=== PATIENT | female | born 1960 | race African-American/Black ===

== ENCOUNTER 2018-08-02 10:12 | Emergency (ER) | payer BC, MEDICAID ==
--- NOTE | 2018-08-02 10:28 | EDM.PDOC ---
ED HPI GENERAL MEDICAL PROBLEM - General Stated Complaint: FELL/FACIAL INJURY Time Seen by Provider: 08/02/18 10:27 - Related Data Allergies Allergy/AdvReac Type Severity Reaction Status Date / Time No Known Allergies Allergy Verified 08/02/18 10:27 Home Meds: Home Meds Ibuprofen [Motrin] 600 mg PO Q6H PRN #30 tablet 10/23/14 [Rx] Past Medical History - Past Health History Medical/Surgical History: Denies Medical/Surgical History Respiratory History: Reports: COPD Other [employer] History: Cervical cancer with chemo and radiation treatment Neurological History: Reports: CVA Psychiatric History: Reports: None Hematologic History: Reports: None Oncologic (Cancer) History: Reports: Cervix Other Oncologic History: Port left subclavian area - Infectious Disease History Infectious Disease History: Reports: None Social & Family History - Family History Family Medical History: Noncontributory - Caffeine Use Caffeine Use: Reports: Coffee Departure - Discharge Information Referrals: Scotty Mcmahon MD [Primary Care Provider] -
--- NOTE | 2018-08-02 11:17 | EDM.PDOC ---
ED HPI GENERAL MEDICAL PROBLEM - General Chief Complaint: Trauma Stated Complaint: FELL/FACIAL INJURY Time Seen by Provider: 08/02/18 10:27 Source of Information: Reports: Patient, RN Notes Reviewed History Limitations: Reports: No Limitations - History of Present Illness INITIAL COMMENTS - FREE TEXT/NARRATIVE: Patient is a 58-year-old female who presents to the ED today for the evaluation of a fall yesterday. She states that she woke up around 7 in the morning yesterday and shortly after waking she felt dizzy and fell to the ground from a standing position. She notes that she has had a previous left-sided stroke in December 2015 which has left her with a left-sided deficit; as included left- sided weakness but she still has sensation to her left side. She notes that she normally walks with a quad cane. She states that she hit the left side of her face on the door frame and then fell onto her left side and directly onto her left arm. She denies any visual disturbance to her left eyes that would include blurry vision or double vision. She states that she does have some pain in her left forearm after this fall. She notes that she has a little bit more swelling on her left forearm than she normally does as well. She states that she took a little bit of Tylenol yesterday for this pain and it did seem to help. She did note some mild swelling to under her left eye as well, with a small bruise noted. She states that she has been feeling well otherwise, no fevers/chills, nausea/vomiting/diarrhea, chest pain, shortness of breath, or headache. She states that she does not have diabetes nor does she have any previous blood sugar or low blood pressure issues. Left Face/Facial Pain Score (Numeric/FACES): 6 Left Arm Pain Score (Numeric/FACES): 4 - Related Data Allergies Allergy/AdvReac Type Severity Reaction Status Date / Time No Known Allergies Allergy Verified 08/02/18 10:27 Home Meds: Home Meds Ibuprofen [Motrin] 600 mg PO Q6H PRN #30 tablet 10/23/14 [Rx] Abacavir/Dolutegravir/Lamivudi [Triumeq 600-50-300 mg Tablet] 1 tab PO DAILY 01/13 [History] Budesonide/Formoterol [Symbicort 160-4.5 MCG] 2 puff INH BID 08/02/18 [History] Clindamycin Phosphate 1 applic TOP ASDIRECTED 08/02/18 [History] Furosemide [Lasix] 40 mg PO BID 08/02/18 [History] Mirabegron [Myrbetriq] 50 mg PO DAILY 08/02/18 [History] Montelukast [Singulair] 10 mg PO BEDTIME 08/02/18 [History] Ondansetron [Zofran ODT] 1 tab PO Q4H PRN 08/02/18 [History] Sulfamethoxazole/Trimethoprim [Bactrim Ds Tablet] 1 tab PO TID 08/02/18 [History ] Umeclidinium [place] [Incruse Ellipta*] 1 puff INH DAILY 08/02/18 [History] guaiFENesin/Codeine Phosphate [Cheratussin AC Syrup] 5 ml PO Q4H PRN 08/02/18 [ History] Past Medical History - Past Health History Medical/Surgical History: Denies Medical/Surgical History Respiratory History: Reports: COPD Genitourinary History: Reports: Urinary Incontinence 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 Social & Family History - Family History Family Medical History: Noncontributory - Tobacco Use Smoking Status *Q: Never Smoker Second Hand Smoke Exposure: No - Caffeine Use Caffeine Use: Reports: None - Recreational Drug Use Recreational Drug Use: No Review of Systems - Review of Systems Review Of Systems: See Below Constitutional: Reports: Weakness (Previous left sided due to stroke in December 2015). Denies: Chills, Fever Eyes: Denies: Blurred Vision, Pain, Vision Change Ears: Reports: No Symptoms Nose: Denies: Bloody Discharge, Serosanguinous Discharge Mouth/Throat: Reports: No Symptoms Respiratory: Reports: No Symptoms Cardiovascular: Reports: No Symptoms GI/Abdominal: Reports: No Symptoms Genitourinary: Reports: No Symptoms Musculoskeletal: Reports: Arm Pain (Left forearm) Skin: Reports: Bruising (under Left eye orbit) Neurological: Reports: Pre-Existing Deficit (Left sided due to stroke in December 2015) Psychiatric: Reports: No Symptoms ED EXAM, GENERAL - Physical Exam Exam: See Below Exam Limited By: No Limitations General Appearance: Alert, WD/WN, No Apparent Distress Eye Exam: Bilateral Eye: EOMI, Normal Inspection, PERRL Ears: Normal External Exam, Normal Canal, Normal TMs Nose: Normal Inspection, No Blood Throat/Mouth: Normal Inspection, Normal Oropharynx, No Airway Compromise Head: Atraumatic, Normocephalic, Facial Swelling (left sided, under left eye orbit with small ecchymosis noted. No increased pain with palpation of zygomatic process and TMJ or jaw bone. No increased pain/tenderness with percussion of facial sinuses.) Neck: Normal Inspection, Supple, Non-Tender, Full Range of Motion Respiratory/Chest: No Respiratory Distress, Lungs Clear, Normal Breath Sounds, No Accessory Muscle Use, Chest Non-Tender Cardiovascular: Normal Peripheral Pulses, Regular Rate, Rhythm, No Murmur GI/Abdominal: Normal Bowel Sounds, Soft, Non-Tender, No Distention, No Mass Extremities: Normal Inspection, Normal Range of Motion, Normal Capillary Refill , Other (slight tenderness noted to palpation left forearm) Neurological: Alert, Oriented, Normal Cognition, Sensory/Motor Deficit ( Previous left-sided deficits due to stroke in December 2015, the patient has left- sided weakness from this but does retain sensation. She states that she has normal range of motion for the deficit.) Psychiatric: Normal Affect, Normal Mood Skin Exam: Warm, Dry, Intact, Normal Color, No Rash, Ecchymosis (Small ecchymosis noted to inferior left eye orbit) Course - Vital Signs Last Recorded V/S: Last Vital Signs Temp 99.5 F 08/02/18 10:25 Pulse 65 08/02/18 10:25 Resp 18 08/02/18 10:25 BP 112/69 08/02/18 10:25 Pulse Ox 100 08/02/18 10:25 - Orders/Labs/Meds Orders: Active Orders 24 hr Category Date Time Status Forearm 2V Lt [CR] Stat Exams 08/02/18 11:10 Taken Labs: Laboratory Tests 08/02/18 08/02/18 Range/Units 11:44 11:44 WBC 3.52 L (3.98-10.04) K/mm3 RBC 3.07 L (3.98-5.22) M/mm3 Hgb 10.9 L (11.2-15.7) gm/L Hct 33.8 L (34.1-44.9) % MCV 110.1 H (79.4-94.8) fl MCH 35.5 H (25.6-32.2) pg MCHC 32.2 (32.2-35.5) g/dl RDW Std Deviation 51.6 H (36.4-46.3) fL Plt Count 238 (182-369) K/mm3 MPV 8.1 L (9.4-12.3) fl Neutrophils % (Manual) 45 (40-60) % Band Neutrophils % 0 (0-10) % Lymphocytes % (Manual) 35 (20-40) % Atypical Lymphs % 0 % Monocytes % (Manual) 6 (2-10) % Eosinophils % (Manual) 13 H (0.7-5.8) % Basophils % (Manual) 1 (0.1-1.2) Platelet Estimate Adequate Macrocytosis 2+ moderate RBC Morph Comment Not Reportable Sodium 139 (136-145) mEq/L Potassium 4.3 (3.5-5.1) mEq/L Chloride 104 (98-107) mEq/L Carbon Dioxide 25 (21-32) mEq/L Anion Gap 14.3 (5-15) BUN 12 (7-18) mg/dL Creatinine 1.2 H (0.55-1.02) mg/dL Est Cr Clr Drug Dosing 52.81 mL/min Estimated GFR (MDRD) 56 (>60) mL/min BUN/Creatinine Ratio 10.0 L (14-18) Glucose 85 (74-106) mg/dL Calcium 9.1 (8.5-10.1) mg/dL Total Bilirubin 0.2 (0.2-1.0) mg/dL AST 24 (15-37) U/L ALT 25 (14-59) U/L Alkaline Phosphatase 72 (46-116) U/L Total Protein 7.6 (6.4-8.2) g/dl Albumin 3.6 (3.4-5.0) g/dl Globulin 4.0 gm/dL Albumin/Globulin Ratio 0.9 L (1-2) - Re-Assessments/Exams Free Text/Narrative Re-Assessment/Exam: 08/02/18 11:23 Patient presents to the ED for the evaluation of injury sustained from a fall. I am suspicious since this happened yesterday morning that it was due to may be an orthostasis event. However her blood pressure is good at this time of evaluation. I have ordered a left forearm x-ray for further evaluation, and CBC and CMP to further rule out any other abnormalities. Facial CT will not be obtained at this time as there is no obvious sign of any facial bone fracture. 08/02/18 11:54 Left forearm x-ray does not appreciate any acute fracture or other bony abnormalities at this time. Official radiology read is pending. This x-ray was reviewed with Dr. Flowers. 08/02/18 12:32 Patient's labs have returned and are within normal limits. There are no focal abnormalities that would suggest any other underlying etiology that may have precipitated these falls. We will discharge home with general instructions. Departure - Departure Time of Disposition: 12:33 Disposition: Home, Self-Care 01 Condition: Fair Clinical Impression: Left arm pain Fall Qualifiers: Encounter type: initial encounter Qualified Code(s): W19.XXXA - Unspecified fall, initial encounter - Discharge Information *PRESCRIPTION DRUG MONITORING PROGRAM REVIEWED*: No *COPY OF PRESCRIPTION DRUG MONITORING REPORT IN PATIENT JAMA: No Instructions: Musculoskeletal Pain Referrals: Scotty Mcmahon MD [Primary Care Provider] - Additional Instructions: You have been evaluated in the ED for injuries sustained from a fall yesterday. Your x-ray demonstrated no acute fracture or bony abnormality. Your labs were within normal limits, and do not demonstrate any further reason for your fall. Your fall was likely due to slight dehydration with possible drop in blood pressure upon waking. Please use ice/heat as tolerated to the affected areas. You may take tylenol 500 mg or ibuprofen 600mg q6 hrs for pain relief. Please do so until you have a tolerable level of pain with activity. Do not exceed 4000mg tylenol, Do not exceed 3200mg ibuprofen in a 24 hour time period Please return to ED if your symptoms should change or worsen. - My Orders Last 24 Hours: My Active Orders 08/02/18 11:10 Forearm 2V Lt [CR] Stat - Assessment/Plan Last 24 Hours: My Active Orders 08/02/18 11:10 Forearm 2V Lt [CR] Stat
[2018-08-02 12:51] VITALS: BP 133/73
--- NOTE | 2018-08-05 09:06 | CR ---
Left forearm: Two views of the left forearm were obtained. No fracture or other abnormality is appreciated. Impression: 1. No abnormality is appreciated on two-view left forearm study. Diagnostic code #1
== END 2018-08-02 12:42 | disposition home or self-care (01) ==
LOC: JD.ED 10:12
DX: M79.602 Pain in left arm (principal); J44.9 Chronic obstructive pulmonary disease, unspecified; E03.9 Hypothyroidism, unspecified; Z79.899 Other long term (current) drug therapy; W18.30XA Fall on same level, unspecified, initial encounter
CPT/HCPCS: 36415; 73090-26-LT; 73090-LT; 80053; 85007; 85027; 99283; 99284-25

== ENCOUNTER 2018-10-04 13:11 | Emergency (ER) | payer BC, MEDICAID ==
[2018-10-04 13:23] VITALS: BP 146/89
[2018-10-04] MEDS ORDERED: Ketorolac 30 MG/ML SDV IM ONE (13:57)
--- NOTE | 2018-10-04 14:07 | EDM.PDOC ---
ED HPI GENERAL MEDICAL PROBLEM - General Chief Complaint: Lower Extremity Injury/Pain Stated Complaint: [facility] Time Seen by Provider: 10/04/18 13:45 Source of Information: Reports: Patient, RN Notes Reviewed History Limitations: Reports: No Limitations - History of Present Illness INITIAL COMMENTS - FREE TEXT/NARRATIVE: Patient is a 58-year-old female who presents to the ED for the evaluation of left groin and left leg pain. She notes that the left groin pain has been present for the past couple days, but now this pain has been radiating to her left anterior thigh. She denies any swelling or redness to the area. She notes this pain to be crampy in nature. She denies any fevers or chills. She has been taken 1000 mg of Tylenol 3 or 4 times a day but this has not been providing her much relief. She denies any problems of low back pain. She notes that both of her lower extremities are swollen, however this is not worse for her. She states sometimes also when she is sitting upright that the bottom of her left foot goes numb and hurts when she sits directly on her bottom. She would rate her pain at an 8 out of 10 today. Left Thigh Pain Score (Numeric/FACES): 8 - Related Data Allergies Allergy/AdvReac Type Severity Reaction Status Date / Time No Known Allergies Allergy Verified 10/04/18 13:23 Home Meds: Home Meds Abacavir/Dolutegravir/Lamivudi [Triumeq 600-50-300 mg Tablet] 1 tab PO DAILY 01/13 [History] Budesonide/Formoterol [Symbicort 160-4.5 MCG] 2 puff INH BID 08/02/18 [History] Clindamycin Phosphate 1 applic TOP ASDIRECTED 08/02/18 [History] Furosemide [Lasix] 40 mg PO BID 08/02/18 [History] Mirabegron [Myrbetriq] 50 mg PO DAILY 08/02/18 [History] Montelukast [Singulair] 10 mg PO BEDTIME 08/02/18 [History] Ondansetron [Zofran ODT] 1 tab PO Q4H PRN 08/02/18 [History] Sulfamethoxazole/Trimethoprim [Bactrim Ds Tablet] 1 tab PO TID 08/02/18 [History ] Umeclidinium [place] [Incruse Ellipta*] 1 puff INH DAILY 08/02/18 [History] guaiFENesin/Codeine Phosphate [Cheratussin AC Syrup] 5 ml PO Q4H PRN 08/02/18 [ History] Albuterol [Ventolin HFA] 2 puff INH Q4HR PRN 10/04/18 [History] Baclofen 10 oz PO QID 10/04/18 [History] Levothyroxine [Synthroid] 100 mg PO DAILY 10/04/18 [History] Multivitamin [Multivitamins] 1 tab PO DAILY 10/04/18 [History] Maybeury-3/DHA/Epa/Fish Oil [Maybeury 3 500 Softgel] 1 tab PO DAILY 10/04/18 [History] Past Medical History - Past Health History Medical/Surgical History: Denies Medical/Surgical History Respiratory History: Reports: COPD Genitourinary History: Reports: Urinary Incontinence 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 Social & Family History - Family History Family Medical History: Noncontributory - Tobacco Use Smoking Status *Q: Never Smoker Second Hand Smoke Exposure: No - Caffeine Use Caffeine Use: Reports: Tea - Recreational Drug Use Recreational Drug Use: No Review of Systems - Review of Systems Review Of Systems: See Below Constitutional: Denies: Chills, Fever Eyes: Reports: No Symptoms Ears: Reports: No Symptoms Nose: Reports: No Symptoms Mouth/Throat: Reports: No Symptoms Respiratory: Reports: No Symptoms Cardiovascular: Reports: No Symptoms GI/Abdominal: Reports: No Symptoms Genitourinary: Reports: No Symptoms Musculoskeletal: Reports: Leg Pain (Left groin/ Left anterior thigh) Skin: Reports: No Symptoms Neurological: Reports: No Symptoms Psychiatric: Reports: No Symptoms ED EXAM, GENERAL - Physical Exam Exam: See Below Exam Limited By: No Limitations General Appearance: Alert, WD/WN, No Apparent Distress, Obese (morbidly) Respiratory/Chest: No Respiratory Distress, Lungs Clear, Normal Breath Sounds, No Accessory Muscle Use, Chest Non-Tender Cardiovascular: Normal Peripheral Pulses, Regular Rate, Rhythm, No Murmur Peripheral Pulses: 3+: Radial (L), Radial (R) Extremities: Normal Inspection, Non-Tender, Normal Capillary Refill, Pedal Edema (bilateral 2+ pitting, this is not increased from her normal.), Limited Range of Motion (d/t pain in left leg. Patient's ROM is limited also d/t body habitus.). No: Increased Warmth, Redness Neurological: Alert, Oriented, Normal Cognition, No Motor/Sensory Deficits Psychiatric: Normal Affect, Normal Mood Skin Exam: Warm, Dry, Intact, Normal Color, No Rash Course - Vital Signs Last Recorded V/S: Last Vital Signs Temp 98.4 F 10/04/18 13:18 Pulse 65 10/04/18 13:18 Resp 13 10/04/18 13:18 BP 146/89 H 10/04/18 13:18 Pulse Ox 95 10/04/18 13:18 - Orders/Labs/Meds Meds: Medications Discontinued Medications Generic Name Dose Route Start Last Admin Trade Name Jeniffer PRN Reason Stop Dose Admin Ketorolac Tromethamine 60 mg 10/04/18 13:57 10/04/18 14:21 Toradol IM 10/04/18 13:58 60 mg ONETIME ONE Administration Ketorolac Tromethamine Confirm 10/04/18 14:24 10/04/18 14:28 Toradol Administered 10/04/18 14:25 Not Given Dose 30 mg .ROUTE .STK-MED ONE - Re-Assessments/Exams Free Text/Narrative Re-Assessment/Exam: 10/04/18 14:09 Patient presents to the ED for the evaluation of left groin and anterior thigh pain. I have ordered a hip x-ray for evaluation of a possible fracture, however I'm suspicious that this is more musculoskeletal in nature. The patient 's body habitus made it very hard to assess the patient appropriately. It is likely that her pain is musculoskeletal in origin due to lack of activity due to her physical condition. 10/04/18 14:47 The patient's hip x-ray is done, and does not demonstrate any acute fracture at this time. This was reviewed by Dr. Haynes and myself. Official radiology read is pending however. 10/04/18 15:02 The x-ray has been read by radiology, with mild joint space narrowing seen in both hips. Sacroiliac joints appear within normal limits. Slight osteopenia. Mild degenerative change is seen within the lower lumbar spine. 3 surgical clips are seen within the pelvis. No discrete fracture or other bony abnormality is appreciated on this study. I did let the patient know this results, and she states that the Toradol did improve her pain. I will recommend that she take 400-600 mg of ibuprofen over the next couple days to see if this doesn't also help her pain level. The patient is amenable to this plan at this time. She does note that she will get a quad came to go home. I will see if [employer] can supply her with one to get home from the bus. Departure - Departure Time of Disposition: 15:03 Disposition: Home, Self-Care 01 Condition: Fair Clinical Impression: Left groin pain Thigh pain Qualifiers: Laterality: left Qualified Code(s): M79.652 - Pain in left thigh - Discharge Information *PRESCRIPTION DRUG MONITORING PROGRAM REVIEWED*: No *COPY OF PRESCRIPTION DRUG MONITORING REPORT IN PATIENT JAMA: No Instructions: Musculoskeletal Pain Referrals: Scotty Mcmahon MD [Primary Care Provider] - Forms: ED Department Discharge Additional Instructions: You have been evaluated in the ED for your left groin/thigh pain. Your x-ray demonstrated no acute fracture at this ED visit. It did demonstrate some degenerative changes in your low back and hips. Please use ice/heat as tolerated to the affected area. You may take ibuprofen 600mg q6 hours for pain relief. Please do so until you have a tolerable level of pain with activity. Do not exceed 3200mg ibuprofen in a 24 hour time period Please return to ED if your symptoms should change or worsen.
[2018-10-04] MEDS ORDERED: Ketorolac 30 MG/ML SDV ONE (14:24)
--- NOTE | 2018-10-04 14:47 | CR ---
Pelvis and left hip: AP view of the pelvis was obtained as well as slight frog-leg lateral and crosstable lateral views of the left hip. Mild joint space narrowing is seen within both hips. Sacroiliac joints appear within normal limits. Slight osteopenia is seen. Mild degenerative change is seen within the lower lumbar spine. Three surgical clips are seen within the pelvis. No discrete fracture or other bony abnormality is seen. Impression: 1. Degenerative change as noted above. Nothing acute is appreciated. Diagnostic code #2
== END 2018-10-04 15:30 | disposition home or self-care (01) ==
LOC: JD.ED 13:11 → SUPCPDRO 13:11 → JD.ED 15:30
DX: R10.32 Left lower quadrant pain (principal); M79.652 Pain in left thigh; E03.9 Hypothyroidism, unspecified; Z86.73 Personal history of transient ischemic attack (TIA), and cerebral infarction without residual deficits; Z79.899 Other long term (current) drug therapy
CPT/HCPCS: 73502; 96372; 99283; J1885

== ENCOUNTER 2019-06-14 12:28 | Emergency (ER) | payer OTHER ==
[2019-06-14 12:37] VITALS: BP 148/94; PULSE 88
--- NOTE | 2019-06-14 12:42 | EDM.PDOC ---
ED HPI GENERAL MEDICAL PROBLEM - General Chief Complaint: Lower Extremity Injury/Pain Stated Complaint: [facility] Time Seen by Provider: 06/14/19 12:33 Source of Information: Reports: Patient, EMS History Limitations: Reports: No Limitations - History of Present Illness INITIAL COMMENTS - FREE TEXT/NARRATIVE: The patient presents by [facility] for left ankle and right knee pain. The patient was on her way to the bathroom and her left ankle "gave out" and she fell and landed on her right knee. She as no other injuries. She was walking with her cane when EMS got there. Onset: Sudden Duration: Minutes: Location: Reports: Lower Extremity, Left (ankle), Lower Extremity, Right (knee) Quality: Reports: Sharp Severity: Moderate Improves with: Reports: Immobilization Worsens with: Reports: Movement Context: Reports: Trauma (fell) Associated Symptoms: Reports: No Other Symptoms Right Knee Pain Score (Numeric/FACES): 5 Left Ankle Pain Score (Numeric/FACES): 5 - Related Data Allergies Allergy/AdvReac Type Severity Reaction Status Date / Time No Known Allergies Allergy Verified 01/04/19 14:22 Home Meds: Home Meds Abacavir/Dolutegravir/Lamivudi [Triumeq 600-50-300 mg Tablet] 1 tab PO DAILY 01/13 [History] Budesonide/Formoterol [Symbicort 160-4.5 MCG] 2 puff INH BID 08/02/18 [History] Furosemide [Lasix] 40 mg PO BID 08/02/18 [History] Mirabegron [Myrbetriq] 50 mg PO DAILY 08/02/18 [History] Montelukast [Singulair] 10 mg PO BEDTIME 08/02/18 [History] Umeclidinium [place] [Incruse Ellipta*] 1 puff INH DAILY 08/02/18 [History] Albuterol [Ventolin HFA] 2 puff INH Q4HR PRN 10/04/18 [History] Baclofen 20 mg PO TID 10/04/18 [History] Levothyroxine [Synthroid] 100 mcg PO DAILY 10/04/18 [History] Multivitamin [Multivitamins] 1 tab PO DAILY 10/04/18 [History] Mcwilliams-3/DHA/Epa/Fish Oil [Mcwilliams 3 500 Softgel] 1,000 mg PO DAILY 10/04/18 [ History] Past Medical History - Past Health History Medical/Surgical History: Denies Medical/Surgical History Respiratory History: Reports: Asthma, COPD, Other (See Below) Other Respiratory History: pt wears oxygen per nasal cannula at 2liters at night time. uses nebulizer treatments at [facility]. Genitourinary History: Reports: Urinary Incontinence Other Genitourinary History: after cervical surgery lost control of bladder, and now is getting better but still wears a brief. 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: Cervical cancer with chemo and radiation treatment Neurological History: Reports: CVA Other Neuro History: 2016 Psychiatric History: Reports: None Endocrine/Metabolic History: Reports: Hypothyroidism, Obesity/BMI 30+ Hematologic History: Reports: None Immunologic History: Reports: HIV Oncologic (Cancer) History: Reports: Cervix Other Oncologic History: Port left subclavian area - Infectious Disease History Infectious Disease History: Reports: HIV-Human Immunodeficiency Virus - Past Surgical History Head Surgeries/Procedures: Reports: Other (See Below) Other Female Surgeries/Procedures: cervical CA--Tx'd with chemo and radiation. Endocrine Surgical History: Reports: None Oncologic Surgical History: Reports: None Social & Family History - Family History Family Medical History: Noncontributory - Caffeine Use Caffeine Use: Reports: Tea Other Caffeine Use: 2 cups a da Review of Systems - Review of Systems Review Of Systems: See Below Constitutional: Reports: No Symptoms Eyes: Reports: No Symptoms Ears: Reports: No Symptoms Nose: Reports: No Symptoms Mouth/Throat: Reports: No Symptoms Respiratory: Reports: No Symptoms Cardiovascular: Reports: No Symptoms GI/Abdominal: Reports: No Symptoms Genitourinary: Reports: No Symptoms Musculoskeletal: Reports: Other (Right knee and left ankle pain) ED EXAM, GENERAL - Physical Exam Exam: See Below Exam Limited By: No Limitations General Appearance: Alert, No Apparent Distress Ears: Normal External Exam Nose: Normal Inspection Head: Atraumatic, Normocephalic Neck: Normal Inspection Respiratory/Chest: No Respiratory Distress Extremities: Other (Mild pain upon palpation to the right knee and left ankle Good sensation and pulses distally.) Course - Vital Signs Last Recorded V/S: Last Vital Signs Temp 97.4 F 06/14/19 12:33 Pulse 88 06/14/19 12:33 Resp 20 06/14/19 12:33 BP 148/94 H 06/14/19 12:33 Pulse Ox 93 L 06/14/19 12:33 - Orders/Labs/Meds Orders: Active Orders 24 hr Category Date Time Status Ankle Min 3V Lt [CR] Stat Exams 06/14/19 12:36 Ordered Knee Min 4V Rt [CR] Stat Exams 06/14/19 12:36 Ordered - Re-Assessments/Exams Free Text/Narrative Re-Assessment/Exam: 06/14/19 12:41 I have ordered x-rays. 06/14/19 13:29 Her x-rays show nothing acute. I will discharge her home. Departure - Departure Time of Disposition: 13:35 Disposition: Home, Self-Care 01 Condition: Good Clinical Impression: Left ankle sprain Qualifiers: Encounter type: initial encounter Involved ligament of ankle: unspecified ligament Qualified Code(s): S93.402A - Sprain of unspecified ligament of left ankle, initial encounter Right knee pain Qualifiers: Chronicity: acute Qualified Code(s): M25.561 - Pain in right knee - Discharge Information *PRESCRIPTION DRUG MONITORING PROGRAM REVIEWED*: Not Applicable *COPY OF PRESCRIPTION DRUG MONITORING REPORT IN PATIENT JAMA: Not Applicable Forms: ED Department Discharge Additional Instructions: Ice the areas that hurt for 15 minutes 3 times per day. Take tylenol or motrin for pain. Please return if you are worse. Sepsis Event Note - Evaluation Sepsis Screening Result: No Definite Risk - Focused Exam Vital Signs: Vital Signs Temp Pulse Resp BP Pulse Ox 06/14/19 12:33 97.4 F 88 20 148/94 H 93 L Date Exam was Performed: 06/14/19 Time Exam was Performed: 13:29 - My Orders Last 24 Hours: My Active Orders 06/14/19 12:36 Ankle Min 3V Lt [CR] Stat Knee Min 4V Rt [CR] Stat - Assessment/Plan Last 24 Hours: My Active Orders 06/14/19 12:36 Ankle Min 3V Lt [CR] Stat Knee Min 4V Rt [CR] Stat
--- NOTE | 2019-06-14 14:01 | CR ---
Right knee: 4 views right knee were obtained. Comparison: No previous knee exam. Spurring is noted off the patella. Slight osteophyte is noted off the medial tibial margin with mild joint space narrowing also seen within the medial joint. Bony structures are slightly osteopenic. No acute fracture or other abnormality is appreciated. Impression: 1. Mild degenerative change as noted above. 2. Osteopenia. 3. Nothing acute is appreciated. Diagnostic code #2 This report was dictated in [place] Standard Time
--- NOTE | 2019-06-14 14:01 | CR ---
Left ankle: 4 views left ankle were obtained. Comparison: No ankle or foot study is available. Pes planus is noted. Ankle mortise is symmetric. Bony structures are slightly osteopenic. Plantar spur is present. Mild degenerative change is partially visualized within the mid foot. No acute fracture or other bony abnormality is appreciated. Impression: 1. Findings as described above. 2. No acute bony abnormality is appreciated. Diagnostic code #2 This report was dictated in [place] Standard Time
== END 2019-06-14 13:55 | disposition home or self-care (01) ==
LOC: JD.ED 12:28
DX: S93.402A Sprain of unspecified ligament of left ankle, initial encounter (principal); M25.561 Pain in right knee; J44.9 Chronic obstructive pulmonary disease, unspecified; E03.9 Hypothyroidism, unspecified; E66.9 Obesity, unspecified; Z86.73 Personal history of transient ischemic attack (TIA), and cerebral infarction without residual deficits; Z21 Asymptomatic human immunodeficiency virus [HIV] infection status; Z79.899 Other long term (current) drug therapy; Z68.45 Body mass index [BMI] 70 or greater, adult; W19.XXXA Unspecified fall, initial encounter
CPT/HCPCS: 73564-26-RT; 73564-RT; 73610-26-LT; 73610-LT; 99282; 99283-25

== ENCOUNTER 2019-08-02 12:47 | Emergency (ER) | payer OTHER ==
[2019-08-02 13:00] VITALS: BP 130/67
--- NOTE | 2019-08-02 13:50 | EDM.PDOC ---
ED HPI GENERAL MEDICAL PROBLEM - General Chief Complaint: Lower Extremity Injury/Pain Stated Complaint: [facility] Time Seen by Provider: 08/02/19 13:02 Source of Information: Reports: Patient, EMS History Limitations: Reports: No Limitations - History of Present Illness INITIAL COMMENTS - FREE TEXT/NARRATIVE: The patient presents by [facility] for left leg swelling and pain. She recently came home from [place]. They drove most of the way without stopping. She now has swelling and pain in that leg. She did not inure it but she does fall lots. She had a stroke in the past and uses a can or walker. She is morbidly obese also. She calls the ambulance many times a month to help her get up. She has no chest pain but she is short of breath with exertion. She has no fever, chills, cough, abdominal pain, nausea or vomiting. Onset: Gradual Duration: Hour(s): Location: Reports: Lower Extremity, Left Quality: Reports: Ache Severity: Mild Improves with: Reports: None Worsens with: Reports: None Associated Symptoms: Reports: Shortness of Breath. Denies: Chest Pain, Cough, Fever/Chills, Headaches, Nausea/Vomiting Left Lower Leg Pain Score (Numeric/FACES): 6 - Related Data Allergies Allergy/AdvReac Type Severity Reaction Status Date / Time No Known Allergies Allergy Verified 08/02/19 13:00 Home Meds: Home Meds Abacavir/Dolutegravir/Lamivudi [Triumeq 600-50-300 mg Tablet] 1 tab PO DAILY 01/13 [History] Budesonide/Formoterol [Symbicort 160-4.5 MCG] 2 puff INH BID 08/02/18 [History] Furosemide [Lasix] 40 mg PO BID 08/02/18 [History] Mirabegron [Myrbetriq] 50 mg PO DAILY 08/02/18 [History] Montelukast [Singulair] 10 mg PO BEDTIME 08/02/18 [History] Umeclidinium [place] [Incruse Ellipta*] 1 puff INH DAILY 08/02/18 [History] Albuterol [Ventolin HFA] 2 puff INH Q4HR PRN 10/04/18 [History] Baclofen 20 mg PO QID 10/04/18 [History] Levothyroxine [Synthroid] 120 mcg PO DAILY 10/04/18 [History] Multivitamin [Multivitamins] 1 tab PO DAILY 10/04/18 [History] Fay-3/DHA/Epa/Fish Oil [Fay 3 500 Softgel] 1,000 mg PO DAILY 10/04/18 [ History] Abacavir/Dolutegravir/Lamivudi [Triumeq 600-50-300 mg Tablet] 1 tab PO DAILY 12/14 [History] Ondansetron [Zofran ODT] 4 mg SL Q6HR PRN 08/02/19 [History] Rivaroxaban [Xarelto] 15 mg PO BID #42 tab 08/02/19 [Rx] Rivaroxaban [Xarelto] 20 mg PO DAILY #30 tablet 08/02/19 [Rx] Past Medical History - Past Health History Medical/Surgical History: Denies Medical/Surgical History Respiratory History: Reports: Asthma, COPD, Other (See Below) Other Respiratory History: pt wears oxygen per nasal cannula at 2liters at night time. uses nebulizer treatments at [facility]. Genitourinary History: Reports: Urinary Incontinence Other Genitourinary History: after cervical surgery lost control of bladder, and now is getting better but still wears a brief. 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 radiation treatment Neurological History: Reports: CVA Other Neuro History: 2016 Psychiatric History: Reports: None Endocrine/Metabolic History: Reports: Hypothyroidism, Obesity/BMI 30+ Hematologic History: Reports: None Immunologic History: Reports: HIV Oncologic (Cancer) History: Reports: Cervix Other Oncologic History: Port left subclavian area - Infectious Disease History Infectious Disease History: Reports: HIV-Human Immunodeficiency Virus - Past Surgical History Head Surgeries/Procedures: Reports: Other (See Below) Other Female Surgeries/Procedures: cervical CA--Tx'd with chemo and radiation. Endocrine Surgical History: Reports: None Oncologic Surgical History: Reports: None Social & Family History - Family History Family Medical History: Noncontributory - Tobacco Use Smoking Status *Q: Never Smoker - Caffeine Use Caffeine Use: Reports: Tea Other Caffeine Use: 2 cups a da - Recreational Drug Use Recreational Drug Use: No Review of Systems - Review of Systems Review Of Systems: See Below Constitutional: Reports: No Symptoms Eyes: Reports: No Symptoms Ears: Reports: No Symptoms Nose: Reports: No Symptoms Mouth/Throat: Reports: No Symptoms Respiratory: Reports: Shortness of Breath Cardiovascular: Reports: No Symptoms GI/Abdominal: Reports: No Symptoms Genitourinary: Reports: No Symptoms Musculoskeletal: Reports: Other (Left leg swelling and pain) ED EXAM, GENERAL - Physical Exam Exam: See Below Exam Limited By: No Limitations General Appearance: Alert, No Apparent Distress Ears: Normal External Exam Nose: Normal Inspection Head: Atraumatic, Normocephalic Neck: Normal Inspection Respiratory/Chest: No Respiratory Distress, Lungs Clear, Normal Breath Sounds Cardiovascular: Regular Rate, Rhythm, No Edema, No Murmur GI/Abdominal: Soft, Non-Tender, No Organomegaly, No Mass Extremities: Other (Both legs have edema but more in the left leg. Good sensation and pulses distally.) Course - Vital Signs Last Recorded V/S: Last Vital Signs Temp 97.8 F 08/02/19 12:56 Pulse 82 08/02/19 12:56 Resp 18 08/02/19 12:56 BP 130/67 08/02/19 12:56 Pulse Ox 100 08/02/19 12:56 - Re-Assessments/Exams Free Text/Narrative Re-Assessment/Exam: 08/02/19 13:51 I have ordered an US of her left leg. 08/02/19 16:09 The US shows very suboptimal study as noted above. Questionable small amount of nonoccluding clot within the proximal left superficial femoral vein. I will need to start her on some xarelto. Departure - Departure Time of Disposition: 16:15 Disposition: Home, Self-Care 01 Condition: Good Clinical Impression: Blood clot in vein - Discharge Information *PRESCRIPTION DRUG MONITORING PROGRAM REVIEWED*: Not Applicable *COPY OF PRESCRIPTION DRUG MONITORING REPORT IN PATIENT JAMA: Not Applicable Prescriptions: Rivaroxaban [Xarelto] 15 mg PO BID #42 tab Rivaroxaban [Xarelto] 20 mg PO DAILY #30 tablet Referrals: Scotty Mcmahon MD [Primary Care Provider] - 1 Week Forms: ED Department Discharge Additional Instructions: Take xarelto 15mg 2 times per day for 21 days and then 20mg daily after that. Follow up with Dr Mcmahon. Please return if you are di. Sepsis Event Note - Evaluation Sepsis Screening Result: No Definite Risk - Focused Exam Vital Signs: Vital Signs Temp Pulse Resp BP Pulse Ox 08/02/19 12:56 97.8 F 82 18 130/67 100 Date Exam was Performed: 08/02/19 Time Exam was Performed: 16:09
--- NOTE | 2019-08-02 14:25 | US ---
Left lower extremity deep venous ultrasound: Duplex and color Doppler evaluation was obtained of the left common femoral, proximal greater saphenous, superficial femoral, popliteal, posterior tibial and peroneal veins. Technologist's note: Extremely limited study due to patient leg size Findings: Mid and distal superficial femoral veins are not well-visualized. Tibial and peroneal veins are also not well visualized. Common femoral vein shows normal compression, phasic flow and augmentation with no evidence of thrombosis. There may be nonoccluding clot within the proximal superficial femoral vein. Impression: 1. Very suboptimal study as noted above. 2. Questionable small amount of nonoccluding clot within the proximal left superficial femoral vein. Diagnostic code #3 Study was dictated in [place] Standard Time
[2019-08-02] MEDS ORDERED: Rivaroxaban 15 MG Tab PO ONE (17:13)
[2019-08-02 18:06] VITALS: PULSE 80
[2019-08-03] MEDS ORDERED: Rivaroxaban 15 MG Tab PO SCH (17:00)
== END 2019-08-02 17:20 | disposition home or self-care (01) ==
LOC: JD.ED 12:47
DX: I82.812 Embolism and thrombosis of superficial veins of left lower extremity (principal); J44.9 Chronic obstructive pulmonary disease, unspecified; E03.9 Hypothyroidism, unspecified; E66.9 Obesity, unspecified; B20 Human immunodeficiency virus [HIV] disease; Z79.899 Other long term (current) drug therapy; Z86.73 Personal history of transient ischemic attack (TIA), and cerebral infarction without residual deficits
CPT/HCPCS: 93971; 99284; A9270

== ENCOUNTER 2019-08-04 12:17 | Emergency (ER) | payer OTHER ==
--- NOTE | 2019-08-04 13:36 | CT ---
Head CT Technique: Multiple axial sections through the brain were obtained. Intravenous contrast was not utilized. Comparison: Prior head CT study of 01/05/16. Findings: Dystrophic calcifications are noted within the right parietal white matter. Low density area having the appearance of an area of encephalomalacia is seen within the posterior right frontal and parietal region. Previous abnormality on prior exam is no longer seen presumably due to treatment. Mass-effect seen previously has resolved. There is mild ex vacuole enlargement of the right lateral ventricle. No other abnormal parenchymal densities are seen. No evidence of intracranial hemorrhage. No midline shift or mass-effect is seen. Previous craniotomy is noted. No acute calvarial abnormality is seen. Mastoid sinuses are clear. No acute paranasal sinus findings are seen. Impression: 1. Areas of encephalomalacia as well as dystrophic calcification within the right parietal region and posterior right frontal region. Findings have significantly improved from prior head CT exam. Mild ex vacuole enlargement of the right lateral ventricle is seen as well as prior craniotomy. 2. Nothing acute is appreciated on noncontrast head CT exam. Diagnostic code #2 This report was dictated in [place] Standard Time
--- NOTE | 2019-08-04 13:37 | EDM.PDOC ---
ED HPI GENERAL MEDICAL PROBLEM - General Chief Complaint: Neuro Symptoms/Deficits Stated Complaint: [facility] Time Seen by Provider: 08/04/19 12:20 Source of Information: Reports: Patient, EMS, RN Notes Reviewed - History of Present Illness INITIAL COMMENTS - FREE TEXT/NARRATIVE: 59 year old female comes in with L foot and ankle pain, difficulty walking. She than did tell EMS on arrival that she thinks her LUE and LLE "may be weaker than usual". She does have history of prior cerebral stroke with left-sided weakness that occurred about 3-1/2 to 4 years ago. Does walk with the assistance of a quad cane. Was able to get to and from the bathroom today but found this more difficult than usual. She has no current numbness or tingling. No facial droop speech or visual difficulty. She does have Frias, not clear when that started. She states also today she felt short of breath, somewhat weak lightheaded and dizzy when walking. Headache Pain Score (Numeric/FACES): 5 - Related Data Allergies Allergy/AdvReac Type Severity Reaction Status Date / Time No Known Allergies Allergy Verified 08/04/19 12:22 Home Meds: Home Meds Abacavir/Dolutegravir/Lamivudi [Triumeq 600-50-300 mg Tablet] 1 tab PO DAILY 01/13 [History] Budesonide/Formoterol [Symbicort 160-4.5 MCG] 2 puff INH BID 08/02/18 [History] Furosemide [Lasix] 40 mg PO BID 08/02/18 [History] Mirabegron [Myrbetriq] 50 mg PO DAILY 08/02/18 [History] Montelukast [Singulair] 10 mg PO BEDTIME 08/02/18 [History] Umeclidinium [place] [Incruse Ellipta*] 1 puff INH DAILY 08/02/18 [History] Albuterol [Ventolin HFA] 2 puff INH Q4HR PRN 10/04/18 [History] Baclofen 20 mg PO QID 10/04/18 [History] Levothyroxine [Synthroid] 120 mcg PO DAILY 10/04/18 [History] Multivitamin [Multivitamins] 1 tab PO DAILY 10/04/18 [History] [place]-3/DHA/Epa/Fish Oil [[place]ris 3 500 Softgel] 1,000 mg PO DAILY 10/04/18 [ History] Abacavir/Dolutegravir/Lamivudi [Triumeq 600-50-300 mg Tablet] 1 tab PO DAILY 12/14 [History] Ondansetron [Zofran ODT] 4 mg SL Q6HR PRN 08/02/19 [History] Rivaroxaban [Xarelto] 15 mg PO BID #42 tab 08/02/19 [Rx] Rivaroxaban [Xarelto] 20 mg PO DAILY #30 tablet 08/02/19 [Rx] Past Medical History - Past Health History Medical/Surgical History: Denies Medical/Surgical History Respiratory History: Reports: Asthma, COPD, Other (See Below) Other Respiratory History: pt wears oxygen per nasal cannula at 2liters at night time. [facility]. Genitourinary History: Reports: Urinary Incontinence Other Genitourinary History: after cervical surgery lost control of bladder, and now is getting better but still wears a brief. 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 Endocrine Surgical History: Reports: None Oncologic Surgical History: Reports: None Social & Family History - Family History Family Medical History: Noncontributory - Tobacco Use Smoking Status *Q: Never Smoker - Caffeine Use Caffeine Use: Reports: Tea Other Caffeine Use: 2 cups a da ED ROS GENERAL - Review of Systems Review Of Systems: See Below Constitutional: Denies: Fever, Chills, Diaphoresis HEENT: Denies: Sinus Problem, Vertigo, Vision Change Respiratory: Denies: Shortness of Breath Cardiovascular: Denies: Chest Pain GI/Abdominal: Denies: Abdominal Pain, Nausea, Vomiting Musculoskeletal: Reports: Leg Pain, Foot Pain Skin: Reports: No Symptoms Neurological: Reports: Dizziness, Difficulty Walking, Weakness. Denies: Headache, Numbness, Tingling, Trouble Speaking ED EXAM, NEURO - Physical Exam Exam: See Below General Appearance: Alert, Moderate Distress Eye Exam: Bilateral Eye: PERRL Ears: Normal External Exam Throat/Mouth: Normal Inspection, Normal Oropharynx Head Exam: Atraumatic Neck: Supple Respiratory/Chest: No Respiratory Distress, Lungs Clear, Normal Breath Sounds Cardiovascular: Regular Rate, Rhythm Neurological: Alert, No Motor/Sensory Deficits, Oriented x 3 Extremities: Pedal Edema. No: Leg Pain Skin Exam: Warm, Dry. No: No Rash, Erythema, Increased Warmth Course - Vital Signs Last Recorded V/S: Last Vital Signs Temp 97.9 F 08/04/19 15:50 Pulse 80 08/04/19 15:50 Resp 15 08/04/19 15:50 BP 117/66 08/04/19 15:50 Pulse Ox 100 08/04/19 15:50 - Orders/Labs/Meds Labs: Laboratory Tests 08/04/19 08/04/19 08/04/19 Range/Units 13:32 13:40 13:40 WBC 5.25 (3.98-10.04) K/mm3 RBC 3.80 L (3.98-5.22) M/mm3 Hgb 13.1 D (11.2-15.7) gm/dl Hct 38.9 (34.1-44.9) % MCV 102.4 H D (79.4-94.8) fl MCH 34.5 H (25.6-32.2) pg MCHC 33.7 (32.2-35.5) g/dl RDW Std Deviation 50.6 H (36.4-46.3) fL Plt Count 317 (182-369) K/mm3 MPV 8.9 L (9.4-12.3) fl Neut % (Auto) 46.7 (34.0-71.1) % Lymph % (Auto) 35.4 (19.3-51.7) % [place] % (Auto) 13.5 H (4.7-12.5) % Eos % (Auto) 3.8 (0.7-5.8) Baso % (Auto) 0.4 (0.1-1.2) % Neut # (Auto) 2.45 (1.56-6.13) K/mm3 Lymph # (Auto) 1.86 (1.18-3.74) K/mm3 [place] # (Auto) 0.71 H (0.24-0.36) K/mm3 Eos # (Auto) 0.20 (0.04-0.36) K/mm3 Baso # (Auto) 0.02 (0.01-0.08) K/mm3 D-Dimer, Quantitative 0.94 H (0.19-0.50) mg/L Sodium 140 (136-145) mEq/L Potassium 3.7 (3.5-5.1) mEq/L Chloride 104 (98-107) mEq/L Carbon Dioxide 28 (21-32) mEq/L Anion Gap 11.7 (5-15) BUN 13 (7-18) mg/dL Creatinine 1.1 H (0.55-1.02) mg/dL Est Cr Clr Drug Dosing 56.92 mL/min Estimated GFR (MDRD) > 60 (>60) mL/min BUN/Creatinine Ratio 11.8 L (14-18) Glucose 98 (74-106) mg/dL Calcium 9.0 (8.5-10.1) mg/dL Total Bilirubin 0.2 (0.2-1.0) mg/dL AST 44 H (15-37) U/L ALT 48 (14-59) U/L Alkaline Phosphatase 82 (46-116) U/L Total Protein 7.2 (6.4-8.2) g/dl Albumin 3.1 L (3.4-5.0) g/dl Globulin 4.1 gm/dL Albumin/Globulin Ratio 0.8 L (1-2) - Re-Assessments/Exams Free Text/Narrative Re-Assessment/Exam: 08/04/19 14:[address] did not show acute findings, see radiology report for details. She does not have a definite focal weakness on exam at time of arrival or just abit ago at time of recheck. A lot of her trouble right now is L foot, ankle, leg pain trying to walk. Labs did come back relatively okay, of note her d-dimer was mildly elevated at 0.98 which was supports the diagnosis of small clots distal left ankle and leg to be present on ultrasound last ED visit just a few days ago. Will have her continue on the Xarelto which she has been taking. Suggest that she use her walker when moving about her home. She states her walker is too large to fit into the bathroom area so there she will need to use her quad cane. Patient is agreeable with that plan. She missed her appointment with Dr. Mcmahon today coming here to the ED. I have asked that she try get into see him later this week or early next week. Discharge instructions as documented. Departure - Departure Time of Disposition: 15:02 Disposition: Home, Self-Care 01 Condition: Fair Clinical Impression: Ankle pain, left, Left leg pain, Blood clot in vein - Discharge Information Instructions: Joint Pain, [id number] Referrals: Scotty Mcmahon MD [Primary Care Provider] - Forms: ED Department Discharge Additional Instructions: Continue Xarelto as prescribed, drink plenty of water to maintain hydration, continue other current medications. Use walker to get around in your home to lower your fall risk and make it easier for you to ambulate. Use your quad cane in the bathroom area as needed. I see Dr. Mcmahon later this week or early next week, next available appointment. Call clinic for appointment. Return to ED as needed. Sepsis Event Note - Evaluation Sepsis Screening Result: No Definite Risk - Focused Exam Date Exam was Performed: 08/07/19 Time Exam was Performed: 17:36
--- NOTE | 2019-08-04 13:51 | CR ---
Chest: Frontal view of the chest was obtained in AP projection. Comparison: No prior chest x-ray. Heart size and mediastinum are within normal limits for AP technique. Lungs are clear with no acute parenchymal change. Bony structures are grossly intact. Impression: 1. Nothing acute is seen on AP chest x-ray. Diagnostic code #1 This report was dictated in [place] Standard Time
[2019-08-04 16:01] VITALS: BP 117/66; PULSE 80
== END 2019-08-04 15:55 | disposition home or self-care (01) ==
LOC: JD.ED 12:17
DX: I82.4Z2 Acute embolism and thrombosis of unspecified deep veins of left distal lower extremity (principal); J44.9 Chronic obstructive pulmonary disease, unspecified; E03.9 Hypothyroidism, unspecified; E66.9 Obesity, unspecified; B20 Human immunodeficiency virus [HIV] disease; Z79.899 Other long term (current) drug therapy; Z86.73 Personal history of transient ischemic attack (TIA), and cerebral infarction without residual deficits; Z68.44 Body mass index [BMI] 60.0-69.9, adult
CPT/HCPCS: 36415; 70450; 70450-26; 71045; 71045-26; 80053; 85025; 85379; 99285-25

== ENCOUNTER 2019-11-11 21:22 | Emergency (ER) | payer MEDICAID ==
[2019-11-11 21:30] VITALS: BP 132/74; PULSE 117
--- NOTE | 2019-11-11 21:59 | EDM.PDOC ---
ED HPI GENERAL MEDICAL PROBLEM - General Chief Complaint: Neuro Symptoms/Deficits Stated Complaint: [facility] Time Seen by Provider: 11/11/19 21:57 - History of Present Illness INITIAL COMMENTS - FREE TEXT/NARRATIVE: 59-year-old female presents the emergency room after having a apparent seizure. Patient was visiting with some family and watching TV she was in a reclining chair and then started to shake uncontrollably her eyes rolled back in her head. This lasted approximately 7 minutes according to the patient's cousin. After this the patient was unresponsive for approximately 20 minutes. Patient has a complicated past medical history for reactive airway disease she has a blood infection and receives IV daily Invanz. And she is HIV positive. Patient is not aware of any loss of bowel or bladder control. When she started to wake up apparently the patient was combative at times with EMS crew. The patient is taking Xarelto for a blood clot in her leg. - Related Data Allergies Allergy/AdvReac Type Severity Reaction Status Date / Time No Known Allergies Allergy Verified 11/11/19 21:30 Home Meds: Home Meds Abacavir/Dolutegravir/Lamivudi [Triumeq 600-50-300 mg Tablet] 1 tab PO DAILY 08/02/18 [History] Budesonide/Formoterol [Symbicort 160-4.5 MCG] 2 puff INH BID 08/02/18 [History] Furosemide [Lasix] 40 mg PO BID 08/02/18 [History] Mirabegron [Myrbetriq] 50 mg PO DAILY 08/02/18 [History] Montelukast [Singulair] 10 mg PO BEDTIME 08/02/18 [History] Umeclidinium Todd [Incruse Ellipta*] 1 puff INH DAILY 08/02/18 [History] Albuterol [Ventolin HFA] 2 puff INH Q4HR PRN 10/04/18 [History] Baclofen 20 mg PO QID 10/04/18 [History] Levothyroxine [Synthroid] 120 mcg PO DAILY 10/04/18 [History] Multivitamin [Multivitamins] 1 tab PO DAILY 10/04/18 [History] Rusk-3/DHA/Epa/Fish Oil [Rusk 3 500 Softgel] 1,000 mg PO DAILY 10/04/18 [History] Abacavir/Dolutegravir/Lamivudi [Triumeq 600-50-300 mg Tablet] 1 tab PO DAILY 08/02/19 [History] Ondansetron [Zofran ODT] 4 mg SL Q6HR PRN 08/02/19 [History] Rivaroxaban [Xarelto] 15 mg PO BID #42 tab 08/02/19 [Rx] Rivaroxaban [Xarelto] 20 mg PO DAILY #30 tablet 08/02/19 [Rx] levETIRAcetam [Keppra] 500 mg PO Q12H #60 tablet 11/12/19 [Rx] Past Medical History - Past Health History Medical/Surgical History: Denies Medical/Surgical History Respiratory History: Reports: Asthma, COPD, Other (See Below) Other Respiratory History: pt wears oxygen per nasal cannula at 2liters at night time. [facility] nebulizer treatments at [facility]. Genitourinary History: Reports: Urinary Incontinence Other Genitourinary History: after cervical surgery lost control of bladder, and now is getting better but still wears a brief. Other [employer] History: Cervical cancer with chemo and radiation treatment Neurological History: Reports: CVA Other Neuro History: 2016 Psychiatric History: Reports: None Endocrine/Metabolic History: Reports: Hypothyroidism, Obesity/BMI 30+ Hematologic History: Reports: None Immunologic History: Reports: HIV Oncologic (Cancer) History: Reports: Cervix Other Oncologic History: Port left subclavian area - Infectious Disease History Infectious Disease History: Reports: HIV-Human Immunodeficiency Virus - Past Surgical History Head Surgeries/Procedures: Reports: Other (See Below) Other Female Surgeries/Procedures: cervical CA--Tx'd with chemo and radiation. Endocrine Surgical History: Reports: None Oncologic Surgical History: Reports: None Social & Family History - Family History Family Medical History: Noncontributory - Tobacco Use Smoking Status *Q: Never Smoker - Caffeine Use Caffeine Use: Reports: None Other Caffeine Use: 2 cups a da - Recreational Drug Use Recreational Drug Use: No ED ROS GENERAL - Review of Systems Review Of Systems: See Below Constitutional: Reports: No Symptoms HEENT: Reports: No Symptoms Respiratory: Reports: No Symptoms Cardiovascular: Reports: No Symptoms Endocrine: Reports: No Symptoms GI/Abdominal: Reports: No Symptoms : Reports: No Symptoms Musculoskeletal: Reports: No Symptoms Neurological: Reports: Seizure Psychiatric: Reports: No Symptoms - Physical Exam Exam: See Below Exam Limited By: No Limitations General Appearance: Alert, No Apparent Distress, Obese Eye Exam: Bilateral Eye: Normal Inspection, PERRL Ears: Normal External Exam, Normal Canal, Hearing Grossly Normal, Normal TMs Nose: Normal Inspection, Normal Mucosa, No Blood Throat/Mouth: Normal Inspection, Normal Lips, Normal Teeth, Normal Gums, Normal Oropharynx, Normal Voice, No Airway Compromise Head Exam: Atraumatic, Normocephalic, Facial Tenderness Neck: Supple, Non-Tender, Full Range of Motion. No: Lymphadenopathy (L), Lymphadenopathy (R), Tender Lateral, Tender Midline Respiratory/Chest: No Respiratory Distress, Lungs Clear, Normal Breath Sounds Cardiovascular: Regular Rate, Rhythm, No Edema, No Murmur GI/Abdominal: Normal Bowel Sounds, Soft, Non-Tender, Other (Narinder obese) Neuro Exam (Abbreviated): Alert, Oriented, Normal Cognition Back Exam: Normal Inspection, Full Range of Motion. No: CVA Tenderness (L), CVA Tenderness (R) Extremities: Normal Inspection, Non-Tender Psychiatric: Normal Affect, Normal Mood Course - Vital Signs Last Recorded V/S: Last Vital Signs Temp 36.7 C 11/11/19 21:26 Pulse 117 H 11/11/19 21:26 Resp 16 11/11/19 21:26 BP 132/74 11/11/19 21:26 Pulse Ox 98 11/11/19 21:26 - Orders/Labs/Meds Orders: Active Orders 24 hr Category Date Time Status EKG Documentation Completion [RC] STAT Care 11/11/19 22:08 Active Head wo Cont [CT] Stat Exams 11/11/19 22:08 Taken DRUG SCREEN, URINE [URCHEM] Stat Lab 11/11/19 22:08 Ordered UA RFX ZEV AND CULT IF INDIC [URIN] Stat Lab 11/11/19 22:07 Ordered Labs: Laboratory Tests 11/11/19 11/11/19 Range/Units 22:55 22:55 WBC 5.12 (3.98-10.04) K/mm3 RBC 3.93 L (3.98-5.22) M/mm3 Hgb 13.1 (11.2-15.7) gm/dl Hct 40.3 (34.1-44.9) % MCV 102.5 H (79.4-94.8) fl MCH 33.3 H (25.6-32.2) pg MCHC 32.5 (32.2-35.5) g/dl RDW Std Deviation 50.8 H (36.4-46.3) fL Plt Count 213 D (182-369) K/mm3 MPV 8.9 L (9.4-12.3) fl Neut % (Auto) 31.8 L (34.0-71.1) % Lymph % (Auto) 46.3 (19.3-51.7) % Scott % (Auto) 16.8 H (4.7-12.5) % Eos % (Auto) 4.3 (0.7-5.8) Baso % (Auto) 0.8 (0.1-1.2) % Neut # (Auto) 1.63 (1.56-6.13) K/mm3 Lymph # (Auto) 2.37 (1.18-3.74) K/mm3 Scott # (Auto) 0.86 H (0.24-0.36) K/mm3 Eos # (Auto) 0.22 (0.04-0.36) K/mm3 Baso # (Auto) 0.04 (0.01-0.08) K/mm3 Manual Slide Review Abnormal smear Sodium 140 (136-145) mEq/L Potassium 4.2 (3.5-5.1) mEq/L Chloride 104 (98-107) mEq/L Carbon Dioxide 27 (21-32) mEq/L Anion Gap 13.2 (5-15) BUN 10 (7-18) mg/dL Creatinine 1.2 H (0.55-1.02) mg/dL Est Cr Clr Drug Dosing TNP Estimated GFR (MDRD) 56 (>60) mL/min BUN/Creatinine Ratio 8.3 L (14-18) Glucose 90 (74-106) mg/dL Calcium 9.4 (8.5-10.1) mg/dL Total Bilirubin 0.3 (0.2-1.0) mg/dL AST 36 (15-37) U/L ALT 30 (14-59) U/L Alkaline Phosphatase 100 (46-116) U/L Total Protein 7.4 (6.4-8.2) g/dl Albumin 3.5 (3.4-5.0) g/dl Globulin 3.9 gm/dL Albumin/Globulin Ratio 0.9 L (1-2) Ethyl Alcohol 0.00 (0.00) gm% Meds: Medications Discontinued Medications Generic Name Dose Route Start Last Admin Trade Name Jeniffer PRN Reason Stop Dose Admin Levetiracetam 500 mg 11/12/19 00:57 11/12/19 01:01 Keppra PO 11/12/19 00:58 500 mg ONETIME ONE Administration Levetiracetam 500 mg 11/12/19 01:19 Keppra PO 11/12/19 01:20 NOW ONE Lorazepam 1 mg 11/11/19 22:10 11/11/19 22:31 Ativan IVPUSH 11/11/19 22:11 1 mg ONETIME ONE Administration - Re-Assessments/Exams Free Text/Narrative Re-Assessment/Exam: 11/12/19 01:23 Work-up done labs as stated above. Urinalysis cannot be obtained catheterization failed attempted to clean catch it and it was horribly contaminated with stool. CT shows no acute changes however her postsurgical sites from her prior brain tumor have been noted with this history and what sounds like a generalized seizure I will start her on Keppra 500 mg twice daily at this dose was reviewed with pharmacy. I have discussed this with the patient and she agrees I recommended she follow-up with Dr. Mcmahon in the clinic at the end of this week or first part of next week. Departure - Departure Time of Disposition: 01:26 Disposition: Home, Self-Care 01 Clinical Impression: Seizure - Discharge Information Referrals: Scotty Mcmahon MD [Primary Care Provider] - Forms: ED Department Discharge Additional Instructions: Return to the emergency room with any questions problems or worsening symptoms. Take the Keppra, the seizure medication as directed. This is 1 twice daily Follow-up with your doctor at the end of this week or first part of next week. Sepsis Event Note (ED) - Evaluation Sepsis Screening Result: No Definite Risk - Focused Exam Vital Signs: Vital Signs Temp Pulse Resp BP Pulse Ox 11/11/19 21:26 36.7 C 117 H 16 132/74 98 - My Orders Last 24 Hours: My Active Orders 11/11/19 22:07 UA RFX ZEV AND CULT IF INDIC [URIN] Stat 11/11/19 22:08 EKG Documentation Completion [RC] STAT Head wo Cont [CT] Stat DRUG SCREEN, URINE [URCHEM] Stat - Assessment/Plan Last 24 Hours: My Active Orders 11/11/19 22:07 UA RFX ZEV AND CULT IF INDIC [URIN] Stat 11/11/19 22:08 EKG Documentation Completion [RC] STAT Head wo Cont [CT] Stat DRUG SCREEN, URINE [URCHEM] Stat
[2019-11-11] MEDS ORDERED: LORazepam 2 MG/ML SDV IVPUSH ONE (22:10)
[2019-11-12] MEDS ORDERED: levETIRAcetam 500 MG Tab PO ONE (00:57)
[2019-11-12] MEDS ORDERED: levETIRAcetam Soln 500 MG/5 ML Cup PO ONE (01:19)
--- NOTE | 2019-11-12 08:12 | CT ---
Head CT Technique: Multiple axial sections through the brain were obtained. Intravenous contrast was not utilized. Comparison: Prior head CT study of 08/04/19. Findings: Ventricles along with basal cisterns and sulci over convexities are mildly prominent. Low-density encephalomalacia is noted within the posterior right frontal region extending into the right basal ganglia. Stable calcification is seen within this area which is most likely dystrophic. Previous adjacent craniotomy is noted. Ex vacuole enlargement of the lateral right ventricle is noted. No other abnormal parenchymal densities are seen. No evidence of intracranial hemorrhage. No midline shift or mass effect is appreciated. No acute calvarial abnormality is appreciated. Mastoid sinuses and visualized paranasal sinuses show nothing acute. Impression: 1. Encephalomalacia and calcification on the right side in area of previous craniotomy. Ex vacuole enlargement of the right lateral ventricle. These findings are stable from prior head CT exam. 2. No acute intracranial abnormality is appreciated. Diagnostic code #2 I agree with preliminary report issued by [facility] ([facility] preliminary report dictated on 11/12/19, 1:09 AM Central Daylight Time) Study was dictated in MDT
== END 2019-11-12 01:48 | disposition home or self-care (01) ==
LOC: JD.ED 21:22
DX: R56.9 Unspecified convulsions (principal); J44.9 Chronic obstructive pulmonary disease, unspecified; E03.9 Hypothyroidism, unspecified; E66.9 Obesity, unspecified; B20 Human immunodeficiency virus [HIV] disease; Z86.73 Personal history of transient ischemic attack (TIA), and cerebral infarction without residual deficits; Z79.01 Long term (current) use of anticoagulants; Z79.899 Other long term (current) drug therapy; Z99.81 Dependence on supplemental oxygen
CPT/HCPCS: 36415; 70450; 80053; 80307; 85025; 93005; 96374; 99285; A9270; J2060; 99283

== ENCOUNTER 2022-01-19 10:01 | Emergency (ER) | payer MEDICAID ==
[2022-01-19] MEDS ORDERED: Potassium Chloride 20 MEQ Tab.ER PO ONE (12:08)
[2022-01-19 12:15] LABS: CORONAVIRUS COVID-19 NAA NEGATIVE (NEGATIVE)
[2022-01-19] MEDS: Potassium Chloride 10 MEQ in Premix Bag 1 BAG IV SCH ×4 (12:20→15:43)
[2022-01-19] MEDS ORDERED: Sodium Chloride 0.9% 1,000 ML IV ONE (12:22)
[2022-01-19 16:42] VITALS: BP 140/100; PULSE 77
== END 2022-01-19 17:00 | disposition home or self-care (01) ==
LOC: JD.ED 10:01
DX: R53.1 Weakness (principal); E87.6 Hypokalemia; J45.909 Unspecified asthma, uncomplicated; E66.9 Obesity, unspecified; Z68.30 Body mass index [BMI] 30.0-30.9, adult; Z79.899 Other long term (current) drug therapy; Z20.822 Contact with and (suspected) exposure to COVID-19
CPT/HCPCS: 0240U; 36415; 70450; 71045; 80053; 81001; 82947; 83735; 84484; 85025; 85610; 85730; 93005; 96361; 96365; 96376; 99285; A9270; J3480; J7030; 93010; 99284